=== PATIENT | male | born 1965 | race Caucasian/White ===

== ENCOUNTER → 2020-03-19 | Outpatient (CLI) | payer BC ==
[2020-03-19 17:50] LABS: BLOOD UREA NITROGEN 20 MG/DL (7-18); CALCIUM LEVEL 9.5 MG/DL (8.5-10.1); CARBON DIOXIDE LEVEL 28 MEQ/L (21-32); CHLORIDE LEVEL 105 MEQ/L (98-107); CREATININE FOR GFR 0.95 MG/DL (0.70-1.30); GLOMERULAR FILTRATION RATE > 60.0 (>56); GLUCOSE, FASTING 98 MG/DL (70-100); POTASSIUM SERUM 3.9 MEQ/L (3.5-5.1); SODIUM LEVEL 140 MEQ/L (136-145)
--- NOTE | 2020-03-20 07:59 | ECGEPIP ---
[facility] Test Date: 2020-03-19 Pat Name: NII PINEDA Department: Room: - Gender: Male [employer]: DIANNE : 1965 Requested By: Juan Herr Order Number: [id number] Reading MD: Carlos Goldman Measurements Intervals [place] Rate: 55 P: -1 IA: 162 QRS: 22 QRSD: 92 T: 50 QT: 426 QTc: 407 Interpretive Statements Sinus bradycardia Baseline artifact Comparison tracing not on file Electronically Signed on 03-20-2020 7:58:47 EST by Carlos Goldman
== END ==
LOC: M LAB 16:51
PROVIDERS: ATTEND Orthopaedic Surgery
DX: Z01.812 Encounter for preprocedural laboratory examination (principal)